=== PATIENT | male | born 1990 | race Caucasian/White ===

== ENCOUNTER 2017-01-15 21:54 | Inpatient (IN) ==
--- NOTE | 2017-01-15 22:20 | Emergency Department Note ---
START Narrative - START START: I examined this patient and my medical decision-making was reviewed with the Resident Physician. I agree with the documented findings, disposition and treatment plan as described except to the extent set forth below. 27-year-old male who is depressed after putting his dog to sleep. Presents today with concern for suicidal ideation. Possible plan for lacerating his throat. He did attempt a lacerated his to her yesterday. Plan to obtain basic medical screening labs and have fever although evaluated the patient for final disposition
[2017-01-15] MEDS ORDERED: Tdap (Boostrix) Vaccine 0.5 ML SYRINGE IM ONE (22:24)
--- NOTE | 2017-01-15 22:24 | Emergency Department Note ---
Disposition Clinical Impression: Suicidal ideations, Suicide attempt Disposition: Still a Patient Referrals: NONE,PCP [Non-Partnered Physician] - Time of Disposition: 23:29 General Adult HPI - General Stated complaint: SI Time Seen by Provider: 01/15/17 22:19 Nursing Notes Reviewed: Yes Vital Signs Reviewed: Yes - History of Present Illness HPI Narrative: Patient had a suicide attempt by cutting his throat yesterday. Suicidal ideation today. Denies any homicidal ideation. Does not have a plan for suicide today. States he got depressed after he had to put down his dog. Denies any hallucinations. - Related Data Previous Rx's Medication Instructions Recorded Hydrocodone/Acetaminophen [[place] 1 - 2 tab PO Q6H PRN #14 tab 07/03/15 5-325 Tablet] Ibuprofen [Motrin] 600 mg PO Q6HR PRN #20 tab 07/03/15 Amoxicillin 875 mg PO BID #20 tablet 02/19/16 DiphenhydraMINE [Benadryl] 25 mg PO Q8HR PRN #20 capsule 02/19/16 Guaifenesin/Pseudoephedrne HCl 1 each PO BID #20 tab.er.12h 02/19/16 [Mucinex D ER 1,200-120 mg Tab] Ondansetron ODT [Zofran ODT] 4 mg SL Q6HR #8 tab.rapdis 05/05/16 Amoxicillin/Clavulanate [Augmentin] 875 mg PO BID #20 tablet 12/03/16 Ketoconazole 2% CRM [Nizoral Cream] 1 appl TP DAILY #1 tube 12/03/16 PredniSONE [Katia] 5 mg PO DAILY 6 Days 12/03/16 Allergies Allergy/AdvReac Type Severity Reaction Status Date / Time No Known Allergies Allergy Verified 01/15/17 22:26 All systems ED: reviewed and negative except as stated. Constitutional: Denies: fever Cardiovascular: Denies: chest pain, palpitations, syncope Respiratory: Denies: cough, dyspnea, wheezes Gastrointestinal: Denies: abdominal pain, nausea, vomiting, diarrhea Genitourinary: Denies: urgency, dysuria, frequency, hematuria Musculoskeletal: Denies: back pain, neck pain Integumentary: Reports: abrasion (To right neck). Denies: rash Neurological: Denies: headache, weakness, numbness Past Medical History - Past Medical History Medical history: Reports: no medical history Psychiatric history: Reports: no psych history - Social History Smoking Status: Current every day smoker Smokeless Tobacco Status: No Alcohol use: Reports: none Drug use: Reports: marijuana Physical Exam - General Limitations: no limitations General appearance: alert, in no apparent distress - Head Head exam: atraumatic, normocephalic, normal inspection - Eye Eye exam: Present: normal appearance, PERRL, EOMI. Absent: scleral icterus - ENT ENT exam: normal exam, normal oropharynx, mucous membranes moist - Neck Neck exam: Present: normal inspection, full ROM, trachea midline - Chest Chest inspection: Present: normal inspection, symmetric chest wall rise. Absent : tenderness - Respiratory Respiratory exam: Present: normal lung sounds bilaterally, respiratory distress - Cardiovascular Cardiovascular exam: Present: regular rate, normal rhythm, normal heart sounds - Abdominal Exam Abdominal exam: Present: soft, Non-Tender. Absent: tenderness, distention, guarding, rebound, rigidity - Extremities Exam Extremities exam: Present: normal inspection, full ROM, normal capillary refill. Absent: tenderness, pedal edema - Neurological Exam Neurological exam: Present: alert, oriented X3 - Psychiatric Psychiatric exam: Present: normal affect, normal mood, suicidal ideation. Absent: homicidal ideation - Skin Skin exam: Present: warm, dry, intact, normal color Course Course Narrative: Patient presenting complaints for me complaining of suicidal ideation. He attempted to suicide yesterday by cutting his throat with a razor blade however the reasonably was to goal he stated. He still has SI with no plan at this time. Denies any HI. Denies any visual or audio hallucinations. Denies any other medical plaints at this time. Does report cocaine use with the last few several days ago. He states he snorted at this time. States that he is depressed currently because he had put his dog on yesterday. We will get screening labs and have one a speech to the patient. He is currently pink slipped at this time for suicidal ideation. Patient was signed out to Dr. Simental.
[2017-01-15 22:39] LABS: Basophils # 0.1 K/mcL (0.0-0.2); Eosinophils # 0.1 K/mcL (0.0-0.6); Eosinophils % 1.7 %; Hematocrit 43.3 % (37.5-50.1); Hemoglobin 14.8 g/dL (12.9-16.9); Immature Granulocytes % 0.1 % (0-4); Immature Platelets 6.5 % (1.1-6.1); Lymphocytes % 43.1 %; Mean Corpuscular HGB Conc 34.2 g/dL (31.6-35.5); Mean Corpuscular Hemoglobin 29.3 pg (28.0-33.3); Mean Corpuscular Volume 85.7 fL (83.0-100.0); Mean Platelet Volume 10.9 fL (9.4-12.4); Monocytes # 0.6 K/mcL (0.0-1.3); Neutrophils # 3.2 K/mcL (1.6-8.9); Platelet Count 175 K/mcL (140-400); Red Blood Count 5.05 M/mcL (4.19-5.50); Red Cell Distribution Width 12.7 % (11.5-14.5); Segmented Neutrophils % 46.1 %
[2017-01-15 22:53] LABS: Bilirubin,Urine Small (Negative); Blood,Urine Negative (Negative); Clarity,Urine Clear (Clear); Color,Urine Dark Yellow (Yellow); Glucose,Urine (UA) Normal (Normal); Ketones,Urine 15 mg/dL (Negative); Leukocyte Esterase,Urine Negative (Negative); Nitrite,Urine Negative (Negative); Protein,Urine Trace mg/dL (Neg-Trace); Specific Gravity,Urine > 1.030 (1.010-1.025); Urobilinogen,Urine Normal (Normal)
[2017-01-15 22:53] LABS: BUN/Creatinine Ratio 11 (6-26); Blood Urea Nitrogen 10 mg/dL (8-26); Calcium 9.7 mg/dL (8.6-10.8); Carbon Dioxide 25 mEq/L (19-29); Chloride 106 mEq/L (98-109); Glucose 122 mg/dL (70-99); Osmolality,Calculated 290 (280-300); Potassium 3.8 mEq/L (3.5-4.5); Sodium 140 mEq/L (136-145); eGFR For African Americans > 60 (> 60); eGFR For Non-African Americans > 60 (> 60)
[2017-01-15 22:55] LABS: Acetaminophen < 1.0 mcg/mL (10-30); Ethanol < 10 mg/dL (0-10); Salicylate < 5.0 mg/dL (15-30)
[2017-01-15 22:56] LABS: Bacteria,Urine None Seen per hpf (None-Few); Hyaline Casts,Urine None Seen per lpf (None-Few); RBC,Urine 0-3 per hpf (0-3); Squamous Epithelial Cell,Urine Few per lpf (None-Few); WBC,Urine 0-3 per hpf (0-3)
[2017-01-15 22:59] LABS: Amphetamine Screen,Urine Negative ng/mL (Cutoff=1000); Barbiturate Screen,Urine Negative ng/mL (Cutoff=200); Benzodiazepines Screen,Urine Negative ng/mL (Cutoff=200); Cannabinoid Screen,Urine Positive ng/mL (Cutoff = 50); Cocaine Screen,Urine Positive ng/mL (Cutoff= 300); Opiate Screen,Urine Negative ng/mL (Cutoff=300); Phencyclidine Screen,Urine Negative ng/mL (Cutoff=25)
[2017-01-15] MEDS: Nicotine 21 MG PATCH.TD24 TD SCH (23:34)
--- NOTE | 2017-01-16 00:17 | Emergency Department Note ---
Disposition Clinical Impression: Suicidal ideations, Suicide attempt Disposition: Admitted As Inpatient Condition: Good Referrals: NONE,PCP [Non-Partnered Physician] - General Adult HPI - General Chief complaint: ED Psychiatric Symptoms Stated complaint: SI Time Seen by Provider: 01/15/17 22:19 Source: patient Limitations: no limitations - History of Present Illness Pain Scale: 0 - Related Data Previous Rx's Medication Instructions Recorded Hydrocodone/Acetaminophen [[place] 1 - 2 tab PO Q6H PRN #14 tab 07/03/15 5-325 Tablet] Ibuprofen [Motrin] 600 mg PO Q6HR PRN #20 tab 07/03/15 Amoxicillin 875 mg PO BID #20 tablet 02/19/16 DiphenhydraMINE [Benadryl] 25 mg PO Q8HR PRN #20 capsule 02/19/16 Guaifenesin/Pseudoephedrne HCl 1 each PO BID #20 tab.er.12h 02/19/16 [Mucinex D ER 1,200-120 mg Tab] Ondansetron ODT [Zofran ODT] 4 mg SL Q6HR #8 tab.rapdis 05/05/16 Amoxicillin/Clavulanate [Augmentin] 875 mg PO BID #20 tablet 12/03/16 Ketoconazole 2% CRM [Nizoral Cream] 1 appl TP DAILY #1 tube 12/03/16 PredniSONE [Katia] 5 mg PO DAILY 6 Days 12/03/16 Allergies Allergy/AdvReac Type Severity Reaction Status Date / Time No Known Allergies Allergy Verified 01/15/17 22:26 Constitutional: Denies: fever Cardiovascular: Denies: chest pain, palpitations, syncope Respiratory: Denies: cough, dyspnea, wheezes Gastrointestinal: Denies: abdominal pain, nausea, vomiting, diarrhea Genitourinary: Denies: urgency, dysuria, frequency, hematuria Musculoskeletal: Denies: back pain, neck pain Integumentary: Reports: abrasion (To right neck). Denies: rash Neurological: Denies: headache, weakness, numbness Past Medical History - Past Medical History Medical history: Reports: no medical history Psychiatric history: Reports: no psych history - Social History Smoking Status: Current every day smoker Smokeless Tobacco Status: No Alcohol use: Reports: none Drug use: Reports: marijuana Physical Exam - General Limitations: no limitations General appearance: alert, in no apparent distress Course Course Narrative: This patient was signed out at shift change from Dr. Mann and Dr. Akers. Please refer to their notes for complete details of history and physical examination. Patient presented with suicidal ideations and is awaiting evaluation by the psychiatry service. Patient was evaluated by the psychiatry service and is being admitted to the [facility] psychiatry unit. Vital Signs Temperature 97.9 F 01/15/17 22:26 Pulse Rate 64 01/15/17 22:26 Respiratory Rate 16 01/15/17 22:26 Blood Pressure 131/82 01/15/17 22:26 O2 Sat by Pulse Oximetry 97 01/15/17 22:26 Temperature 97.9 F 01/15/17 22:26 Pulse Rate 64 01/15/17 22:26 Respiratory Rate 16 01/15/17 22:26 Blood Pressure 131/82 01/15/17 22:26 O2 Sat by Pulse Oximetry 97 01/15/17 22:26 Oxygen Delivery Oxygen Delivery Room Air Medical Decision Making - Lab Data Result diagrams: 01/15/17 22:33 01/15/17 22:33 Lab Results 01/15/17 01/15/17 01/15/17 Range/Units 22:33 22:33 22:45 WBC 6.9 (4.3-11.1) K/mcL RBC 5.05 (4.19-5.50) M/mcL Hgb 14.8 (12.9-16.9) g/dL Hct 43.3 (37.5-50.1) % MCV 85.7 (83.0-100.0) fL MCH 29.3 (28.0-33.3) pg MCHC 34.2 (31.6-35.5) g/dL RDW 12.7 (11.5-14.5) % Plt Count 175 (140-400) K/mcL MPV 10.9 (9.4-12.4) fL Immature Gran % 0.1 (0-4) % Seg Neutrophils % 46.1 % Lymphocytes % 43.1 % Monocytes % 8.0 % Eosinophils % 1.7 % Basophils % 1.0 % Neutrophils # 3.2 (1.6-8.9) K/mcL Lymphocytes # 3.0 (0.6-4.6) K/mcL Monocytes # 0.6 (0.0-1.3) K/mcL Eosinophils # 0.1 (0.0-0.6) K/mcL Basophils # 0.1 (0.0-0.2) K/mcL Immature Plt Fraction 6.5 H (1.1-6.1) % Sodium 140 (136-145) mEq/L Potassium 3.8 (3.5-4.5) mEq/L Chloride 106 (98-109) mEq/L Carbon Dioxide 25 (19-29) mEq/L BUN 10 (8-26) mg/dL Creatinine 0.94 (0.72-1.25) mg/dL Est GFR ( Amer) > 60 (> 60) Est GFR (Non-Af Amer) > 60 (> 60) BUN/Creatinine Ratio 11 (6-26) Glucose 122 H (70-99) mg/dL Calculated Osmolality 290 (280-300) Calcium 9.7 (8.6-10.8) mg/dL TSH 1.170 (0.350-4.840) mcIU/mL Urine Color Dark Yellow (Yellow) Urine Clarity Clear (Clear) Urine pH 6.0 (5.0-8.0) pH Units Ur Specific [place] > 1.030 H (1.010-1.025) Urine Protein Trace (Neg-Trace) mg/dL Urine Glucose (UA) Normal (Normal) mg/dL Urine Ketones 15 H (Negative) mg/dL Urine Blood Negative (Negative) Urine Nitrite Negative (Negative) Urine Bilirubin Small H (Negative) Urine Urobilinogen Normal (Normal) mg/dL Ur Leukocyte Esterase Negative (Negative) Urine Microscopic RBC 0-3 (0-3) per hpf Urine Microscopic WBC 0-3 (0-3) per hpf Ur Squamous Epith Cells Few (None-Few) per lpf Urine Bacteria None Seen (None-Few) per hpf Hyaline Casts None Seen (None-Few) per lpf Salicylates < 5.0 L (15-30) mg/dL Urine Opiates Screen (Miitjr=384) ng/mL Acetaminophen < 1.0 L (10-30) mcg/mL Ur Barbiturates Screen (Kqtxom=126) ng/mL Ur Phencyclidine Scrn (Cutoff=25) ng/mL Ur Amphetamines Screen (Loaaow=5034) ng/mL U Benzodiazepines Scrn (Ztfoqs=558) ng/mL Urine Cocaine Screen (Cutoff= 300) ng/mL U Marijuana (THC) Screen (Cutoff = 50) ng/mL Ethyl Alcohol < 10 (0-10) mg/dL 01/15/17 Range/Units 22:45 WBC (4.3-11.1) K/mcL RBC (4.19-5.50) M/mcL Hgb (12.9-16.9) g/dL Hct (37.5-50.1) % MCV (83.0-100.0) fL MCH (28.0-33.3) pg MCHC (31.6-35.5) g/dL RDW (11.5-14.5) % Plt Count (140-400) K/mcL MPV (9.4-12.4) fL Immature Gran % (0-4) % Seg Neutrophils % % Lymphocytes % % Monocytes % % Eosinophils % % Basophils % % Neutrophils # (1.6-8.9) K/mcL Lymphocytes # (0.6-4.6) K/mcL Monocytes # (0.0-1.3) K/mcL Eosinophils # (0.0-0.6) K/mcL Basophils # (0.0-0.2) K/mcL Immature Plt Fraction (1.1-6.1) % Sodium (136-145) mEq/L Potassium (3.5-4.5) mEq/L Chloride (98-109) mEq/L Carbon Dioxide (19-29) mEq/L BUN (8-26) mg/dL Creatinine (0.72-1.25) mg/dL Est GFR ( Amer) (> 60) Est GFR (Non-Af Amer) (> 60) BUN/Creatinine Ratio (6-26) Glucose (70-99) mg/dL Calculated Osmolality (280-300) Calcium (8.6-10.8) mg/dL TSH (0.350-4.840) mcIU/mL Urine Color (Yellow) Urine Clarity (Clear) Urine pH (5.0-8.0) pH Units Ur Specific [place] (1.010-1.025) Urine Protein (Neg-Trace) mg/dL Urine Glucose (UA) (Normal) mg/dL Urine Ketones (Negative) mg/dL Urine Blood (Negative) Urine Nitrite (Negative) Urine Bilirubin (Negative) Urine Urobilinogen (Normal) mg/dL Ur Leukocyte Esterase (Negative) Urine Microscopic RBC (0-3) per hpf Urine Microscopic WBC (0-3) per hpf Ur Squamous Epith Cells (None-Few) per lpf Urine Bacteria (None-Few) per hpf Hyaline Casts (None-Few) per lpf Salicylates (15-30) mg/dL Urine Opiates Screen Negative (Rvfzjn=805) ng/mL Acetaminophen (10-30) mcg/mL Ur Barbiturates Screen Negative (Nsvubl=309) ng/mL Ur Phencyclidine Scrn Negative (Cutoff=25) ng/mL Ur Amphetamines Screen Negative (Cclnce=2917) ng/mL U Benzodiazepines Scrn Negative (Docyxq=057) ng/mL Urine Cocaine Screen Positive H (Cutoff= 300) ng/mL U Marijuana (THC) Screen Positive H (Cutoff = 50) ng/mL Ethyl Alcohol (0-10) mg/dL
[2017-01-16] MEDS ORDERED: Mag Hydrox/Al Hydrox/Simeth 30 ML UDC PO PRN (00:59)
[2017-01-16] MEDS ORDERED: MOM Conc 10 ML UD.LIQ PO PRN (00:59)
[2017-01-16] MEDS ORDERED: *HR* LORazepam 1 MG TABLET PO PRN (00:59)
[2017-01-16] MEDS ORDERED: Acetaminophen 325 MG TABLET PO PRN (00:59)
[2017-01-16] MEDS ORDERED: *HR* LORazepam 2 MG/ML VIAL IM PRN (00:59)
[2017-01-16] MEDS ORDERED: Haloperidol Lactate 5 MG/ML VIAL IM PRN (00:59)
[2017-01-16] MEDS: traZODone 50 MG TABLET PO PRN ×2 (01:31→21:05)
[2017-01-16] MEDS: Nicotine 21 MG PATCH.TD24 TD SCH (09:15)
--- NOTE | 2017-01-16 16:08 | Psychiatry History & Physical ---
Date of Encounter: 01/16/17 Time of Encounter: 15:40 History of Present Illness Patient Stated Chief Complaint: i wanted to slit my throat. Medicare Admission Attestation: For traditional Medicare patients the provided hospital inpatient services are reasonable and necessary and in the case of services not specified as inpatient -only under 42 CFR 419.22 (n), that they are appropriately provided as inpatient services in accordance 42 CFR 412.3. For Critical Access Hospital the patient may reasonably be expected to be discharged or transferred to a hospital within 96 hours after admission to the Critical Access Hospital. Admitted From: Emergency Dept Plans for Post Hospital Care: Home History of Present Illness: Mr. Hogan is a 27 year old male lives with his Girl Friend and her 7 month old baby. He has history of poly substance abuse and was in patient in 2010 for poly substance use and suicidal ideation. he has h/o self mutilating behaviours. This time he tried to cut his throat with razor blade has superficial cut and it happened after argument with GF. States i am tired of hurting others , i have failed everyone even my dog,and i didnot believed in depression and anxiety till now as i broke down and could not handle it. he has multiple recent stressor. he had to put his dog down himself, found out 7 month old is not his, financial . he has been using cocain, marijuana and alcohol. denies any iv use. he admits feeling sad, unhappy, guilty/hopelessness , no psychosis and no manic episode , admits has racing thoughts , sleep not good , irritability and impulsive. denies suicidal ideation or homocidal ideation. Past Med Surg Social Fam HX - Past Medical History Medical history: no medical history - Past Psychiatric History Psychiatric history: Reports: anxiety, previous psychiatric hospitalization Family psychiatric history: No Family History of Suicide: None (has substance use in family , not immediate but his cousins.) - Social History Smoking Status: Current every day smoker Smokeless Tobacco Status: No Alcohol use: none Drug use: cocaine, marijuana - Family History Mother History Unknown: Yes Adopted: No Family Member Ethnicity: Non- Living Status: Still Living Medications & Allergies No Known Home Drugs 01/16/17 [History] Allergies No Known Allergies Allergy (Verified 01/15/17 22:26) Review of Systems Constitutional: Denies: fever, chills, weakness, weight change Eyes: Denies: eye pain, vision change Ears, Nose, Throat: Denies: ear pain, throat pain, dental pain, hearing loss, congestion Cardiovascular: Denies: chest pain, palpitations, dyspnea on exertion Respiratory: Denies: cough, dyspnea, wheezes Gastrointestinal: Denies: abdominal pain, nausea, vomiting, diarrhea, constipation Genitourinary male: Denies: urgency, dysuria, frequency, genital lesions Genitourinary female: Denies: urgency, dysuria, frequency, abnormal menses, dyspareunia Musculoskeletal: Denies: joint swelling, joint pain Integumentary: Denies: rash, lesions, pruritus Neurological: Denies: headache, weakness, numbness, memory loss Psychiatric: Reports: depression, anxiety, abnormal sleep pattern, suicidal ideation, anhedonia, hopelessness, irritability, mood swings, panic attacks Endocrine: Denies: fatigue, heat or cold intolerance Hematologic/Lymphatic: Denies: easy bruising, lymphadenopathy Allergic/Immunologic: Denies: urticaria, itchy eyes Mental Status Exam Patient orientation: Yes Person, Yes Time, Yes Place Level of alertness: Alert Patient appearance: Appropriate Behavior: cooperative, anxious, withdrawn Psychomotor activity: Slowed Eye contact: Maintains Eye Contact Mood description: Depressed, Anxious Affect description: dysphoric Speech pattern: Slowed Speech volume: Soft/Quiet Thought process: Intact Thought content: Yes Guilt Attention span: Unable to Focus Memory description: Grossly Intact Patient reliability: Reliable Historian Intelligence estimate: Average Judgment: Limited Insight: Partial Exam - HEENT Head exam IM: Present: atraumatic, normal inspection Eye exam IM: Present: normal appearance ENT exam IM: Present: normal exam - Neurological Neurological exam IM: Present: alert, CN II-XII intact, normal gait, oriented X3 - Skin Skin exam IM: Present: abrasion, dry (has tattos arms and chest and legs , back. ), warm Results - Vital Signs Vital signs: Temp Pulse Resp BP Pulse Ox 97.8 F 54 16 126/78 97 01/16/17 09:00 01/16/17 09:00 01/16/17 09:00 01/16/17 09:00 01/15/17 22:26 - Labs Labs: Laboratory Last Values WBC 6.9 K/mcL (4.3-11.1) 01/15/17 22:33 RBC 5.05 M/mcL (4.19-5.50) 01/15/17 22:33 Hgb 14.8 g/dL (12.9-16.9) 01/15/17 22:33 Hct 43.3 % (37.5-50.1) 01/15/17 22:33 MCV 85.7 fL (83.0-100.0) 01/15/17 22:33 MCH 29.3 pg (28.0-33.3) 01/15/17 22:33 MCHC 34.2 g/dL (31.6-35.5) 01/15/17 22:33 RDW 12.7 % (11.5-14.5) 01/15/17 22:33 Plt Count 175 K/mcL (140-400) 01/15/17 22:33 MPV 10.9 fL (9.4-12.4) 01/15/17 22:33 Immature Gran % 0.1 % (0-4) 01/15/17 22:33 Seg Neutrophils % 46.1 % 01/15/17 22:33 Lymphocytes % 43.1 % 01/15/17 22:33 Monocytes % 8.0 % 01/15/17 22:33 Eosinophils % 1.7 % 01/15/17 22:33 Basophils % 1.0 % 01/15/17 22:33 Neutrophils # 3.2 K/mcL (1.6-8.9) 01/15/17 22:33 Lymphocytes # 3.0 K/mcL (0.6-4.6) 01/15/17 22: Monocytes # 0.6 K/mcL (0.0-1.3) 01/15/17 22:33 Eosinophils # 0.1 K/mcL (0.0-0.6) 01/15/17 22:33 Basophils # 0.1 K/mcL (0.0-0.2) 01/15/17 22:33 Immature Plt Fraction 6.5 % (1.1-6.1) H 01/15/17 22:33 Sodium 140 mEq/L (136-145) 01/15/17 22:33 Potassium 3.8 mEq/L (3.5-4.5) 01/15/17 22:33 Chloride 106 mEq/L (98-109) 01/15/17 22:33 Carbon Dioxide 25 mEq/L (19-29) 01/15/17 22:33 BUN 10 mg/dL (8-26) 01/15/17 22:33 Creatinine 0.94 mg/dL (0.72-1.25) 01/15/17 22:33 Est GFR ( Amer) > 60 (> 60) 01/15/17 22:33 Est GFR (Non-Af Amer) > 60 (> 60) 01/15/17 22:33 BUN/Creatinine Ratio 11 (6-26) 01/15/17 22:33 Glucose 122 mg/dL (70-99) H 01/15/17 22:33 Calculated Osmolality 290 (280-300) 01/15/17 22:33 Calcium 9.7 mg/dL (8.6-10.8) 01/15/17 22:33 TSH 1.170 mcIU/mL (0.350-4.840) 01/15/17 22:33 Urine Color Dark Yellow (Yellow) 01/15/17 22:45 Urine Clarity Clear (Clear) 01/15/17 22:45 Urine pH 6.0 pH Units (5.0-8.0) 01/15/17 22:45 Ur Specific [place] > 1.030 (1.010-1.025) H 01/15/17 22:45 Urine Protein Trace mg/dL (Neg-Trace) 01/15/17 22:45 Urine Glucose (UA) Normal mg/dL (Normal) 01/15/17 22:45 Urine Ketones 15 mg/dL (Negative) H 01/15/17 22:45 Urine Blood Negative (Negative) 01/15/17 22:45 Urine Nitrite Negative (Negative) 01/15/17 22:45 Urine Bilirubin Small (Negative) H 01/15/17 22:45 Urine Urobilinogen Normal mg/dL (Normal) 01/15/17 22:45 Ur Leukocyte Esterase Negative (Negative) 01/15/17 22:45 Urine Microscopic RBC 0-3 per hpf (0-3) 01/15/17 22:45 Urine Microscopic WBC 0-3 per hpf (0-3) 01/15/17 22:45 Ur Squamous Epith Cells Few per lpf (None-Few) 01/15/17 22:45 Urine Bacteria None Seen per hpf (None-Few) 01/15/17 22:45 Hyaline Casts None Seen per lpf (None-Few) 01/15/17 22:45 Salicylates < 5.0 mg/dL (15-30) L 01/15/17 22:33 Urine Opiates Screen Negative ng/mL (Ulugfg=025) 01/15/17 22:45 Acetaminophen < 1.0 mcg/mL (10-30) L 01/15/17 22:33 Ur Barbiturates Screen Negative ng/mL (Sxrwdu=672) 01/15/17 22:45 Ur Phencyclidine Scrn Negative ng/mL (Cutoff=25) 01/15/17 22:45 Ur Amphetamines Screen Negative ng/mL (Jxbssy=7105) 01/15/17 22:45 U Benzodiazepines Scrn Negative ng/mL (Tqulgg=988) 01/15/17 22:45 Urine Cocaine Screen Positive ng/mL (Cutoff= 300) H 01/15/17 22:45 U Marijuana (THC) Screen Positive ng/mL (Cutoff = 50) H 01/15/17 22:45 Ethyl Alcohol < 10 mg/dL (0-10) 01/15/17 22:33 Assessment and Plan (1) Polysubstance (excluding opioids) dependence Current visit: Yes Status: Chronic Plan: Admit inpatient for safety and stabilization, Close observation, Suicide Precautions per unit protocol, Encourage participation in unit milieu, Group Therapy, Monitor sleep, Monitor appetite, Family/Supportive other meeting Risks, benefits, side effects, alternatives discussed w/pt: Yes Patient agreeable to treatment: Yes Plans for Post Hospital Care: Transfer Inp Rehab Fac (2) Depressive episode Current visit: Yes Status: Acute Plan: Admit inpatient for safety and stabilization, Close observation, Suicide Precautions per unit protocol, Encourage participation in unit milieu, Group Therapy, Monitor sleep, Monitor appetite, Family/Supportive other meeting Risks, benefits, side effects, alternatives discussed w/pt: Yes Patient agreeable to treatment: Yes Plans for Post Hospital Care: Home
[2017-01-16] MEDS: Nicotine 2 MG GUM BC PRN (18:06)
[2017-01-16] MEDS: Divalproex (12 HR) 250 MG TABLET PO SCH (21:04)
[2017-01-17] MEDS: Divalproex (12 HR) 250 MG TABLET PO SCH ×2 (09:58→20:39)
--- NOTE | 2017-01-17 11:28 | Psychiatry Progress Note ---
Date of Encounter: 01/17/17 Time of Encounter: 11:10 Subjective Interval history: Patient seen today , states i was good but not feeling good today , he is also upset about his significant other being upset with him. he is still hopeless and guilty, he is withdrawn and anxious today he is still having cravings and feels meds helping some, sleep good with medication , he has to take prn meds. pt still is significantly depressed and hopeless, no suicidal thoughts . Review of Systems Psychiatric: Reports: depression, anxiety, abnormal sleep pattern, anhedonia, hopelessness, irritability, mood swings, panic attacks Objective: Exam Patient orientation: Yes Person, Yes Time, Yes Place Level of alertness: Alert Patient appearance: Appropriate Behavior: cooperative, withdrawn Psychomotor activity: Slowed Eye contact: Maintains Eye Contact Mood description: Depressed, Anxious Affect description: congruent with mood, dysphoric Speech pattern: Slowed Speech volume: Soft/Quiet Thought process: Perseveration, Slowed Thinking Judgment: Limited Insight: Partial Results - Vital Signs Vital Signs: Temp Pulse Resp BP Pulse Ox 98.2 F 64 16 138/85 97 01/16/17 20:28 01/16/17 20:28 01/16/17 20:28 01/16/17 20:28 01/15/17 22:26 Assessment and Plan (1) Major depressive disorder, severe Current visit: Yes Status: Acute Plan: Continue hospitalization, Close observation, Suicide Precautions per unit protocol, Encourage participation in unit milieu, Group Therapy, Monitor sleep, Monitor appetite, Family/Supportive other meeting Risks, benefits, side effects, alternatives discussed w/pt: Yes Patient agreeable to treatment: Yes (2) Depressive episode Current visit: Yes Status: Resolved Plan: Continue hospitalization, Close observation, Suicide Precautions per unit protocol, Encourage participation in unit milieu, Group Therapy, Monitor sleep, Monitor appetite, Family/Supportive other meeting Risks, benefits, side effects, alternatives discussed w/pt: Yes Patient agreeable to treatment: Yes (3) Polysubstance (excluding opioids) dependence Current visit: Yes Status: Chronic Plan: Continue hospitalization, Close observation, Suicide Precautions per unit protocol, Encourage participation in unit milieu, Group Therapy, Monitor sleep, Monitor appetite, Family/Supportive other meeting Risks, benefits, side effects, alternatives discussed w/pt: Yes Patient agreeable to treatment: Yes Consult Discharge Plan - Plan Referrals: [facility] [Outside] - 01/24/17 2:00 pm (The above appointment is with Carlita Mendez, counselor at [facility]. Your first appointment will be very thorough and the total appointment time will take between two and three hours. You will be completing paperwork, meeting with a counselor and a nurse, and developing a treatment plan. You will receive follow- up appointments for on-going services , which could include community support, mental health and substance abuse counseling, groups/partial hospitalization programming, medication assisted treatment, and psychiatric medication management. Please bring the following with you to your first visit to the clinic: 1) proof of household income (two consecutive pay stubs, social security award letter, bank statement, statement letter from [facility], child support statement, IRS 1040 or W2 form, or a statement from the person who financially supports you stating they help provide for your basic needs), 2) proof of residency (drivers license, a piece of mail showing your address, a statement from person you live with verifying you live at their address), 3) your social security card, 4) photo ID, and 5) your insurance card (if you have commercial insurance you must call to obtain a prior authorization number before you arrive to your first appointment). If you do not bring these items, you will not be seen.) [facility] [Outside] - 01/30/17 1:00 pm (The above appointment is with Carla Fox, for outpatient psychiatric assessment and medication management services. Please arrive 30 minutes early to complete paperwork. Please bring your photo ID and medication list. This is the first available appointment. You may contact the office regularly to check for cancellations that may allow you to be seen sooner. )
[2017-01-17] MEDS: Nicotine 2 MG GUM BC PRN ×3 (12:29→21:32)
[2017-01-17] MEDS: hydrOXYzine pamoate 25 MG CAPSULE PO PRN ×2 (13:28→18:41)
[2017-01-17] MEDS: traZODone 50 MG TABLET PO PRN (22:07)
[2017-01-18] MEDS: Divalproex (12 HR) 250 MG TABLET PO SCH (09:31)
[2017-01-18] MEDS: Nicotine 2 MG GUM BC PRN ×4 (09:58→20:47)
--- NOTE | 2017-01-18 10:34 | Psychiatry Progress Note ---
Date of Encounter: 01/18/17 Time of Encounter: 10:20 Subjective Interval history: Patient seen today , case discussed with treatment team. as per him states i am sleeping better, i am still irritable and carson , racing thoughts, and i get angry easily like yesterday Damián took time to give me something i asked and it made me angry , i also asked for vistaril several times yesterday. will increase depakote to 500 mg bid. denies suicidal ideation or thoughts of hurting others. i am not depressed as much. Review of Systems Psychiatric: Reports: anxiety, anhedonia, irritability, mood swings, panic attacks Objective: Exam Patient orientation: Yes Person, Yes Time, Yes Place Level of alertness: Alert Patient appearance: Average Behavior: cooperative, talkative Psychomotor activity: Normal Eye contact: Maintains Eye Contact Mood description: Anxious Affect description: congruent with mood Speech pattern: Normal rate Speech volume: Normal Thought process: Circumstantial Thought content: Yes Intact Judgment: Fair Insight: Partial Results - Vital Signs Vital Signs: Temp Pulse Resp BP Pulse Ox 98.3 F 71 18 132/91 97 01/17/17 21:00 01/17/17 21:00 01/17/17 21:00 01/17/17 21:00 01/15/17 22:26 Assessment and Plan (1) Major depressive disorder, severe Current visit: Yes Status: Acute Risks, benefits, side effects, alternatives discussed w/pt: Yes Patient agreeable to treatment: Yes (2) Depressive episode Current visit: Yes Status: Resolved Risks, benefits, side effects, alternatives discussed w/pt: Yes Patient agreeable to treatment: Yes (3) Polysubstance (excluding opioids) dependence Current visit: Yes Status: Chronic Risks, benefits, side effects, alternatives discussed w/pt: Yes Patient agreeable to treatment: Yes Consult Discharge Plan - Plan Referrals: [facility] [Outside] - 01/24/17 2:00 pm (The above appointment is with Carlita Mendez, counselor at [facility]. Your first appointment will be very thorough and the total appointment time will take between two and three hours. You will be completing paperwork, meeting with a counselor and a nurse, and developing a treatment plan. You will receive follow- up appointments for on-going services , which could include community support, mental health and substance abuse counseling, groups/partial hospitalization programming, medication assisted treatment, and psychiatric medication management. Please bring the following with you to your first visit to the clinic: 1) proof of household income (two consecutive pay stubs, social security award letter, bank statement, statement letter from [facility], child support statement, IRS 1040 or W2 form, or a statement from the person who financially supports you stating they help provide for your basic needs), 2) proof of residency (drivers license, a piece of mail showing your address, a statement from person you live with verifying you live at their address), 3) your social security card, 4) photo ID, and 5) your insurance card (if you have commercial insurance you must call to obtain a prior authorization number before you arrive to your first appointment). If you do not bring these items, you will not be seen.) [facility] [Outside] - 01/30/17 1:00 pm (The above appointment is with Carla Fox, for outpatient psychiatric assessment and medication management services. Please arrive 30 minutes early to complete paperwork. Please bring your photo ID and medication list. This is the first available appointment. You may contact the office regularly to check for cancellations that may allow you to be seen sooner. )
[2017-01-18] MEDS: hydrOXYzine pamoate 25 MG CAPSULE PO PRN ×2 (13:38→20:02)
[2017-01-18] MEDS: Divalproex (12 HR) 500 MG TABLET PO SCH (20:02)
[2017-01-18] MEDS: traZODone 50 MG TABLET PO PRN (20:02)
[2017-01-19] MEDS: Divalproex (12 HR) 500 MG TABLET PO SCH ×2 (08:55→20:51)
[2017-01-19] MEDS: Nicotine 2 MG GUM BC PRN ×4 (09:39→20:51)
--- NOTE | 2017-01-19 10:55 | Psychiatry Progress Note ---
Date of Encounter: 01/19/17 Time of Encounter: 10:45 Subjective Interval history: Patient seen today , case d/w tratment team , as per staff patient compliant with meds , as per patient he is doing fine, he said slept ok, he is denying any psychosis, no suicidal thughts. depakote was increased for anger and irritability , he states i do feel good and no anger since yesterday , and nothing like before. tiny things do not bother me any more denies side effects. he denies craving and looking forward to out patient treatment. Review of Systems Psychiatric: Reports: anxiety, anhedonia, mood swings, panic attacks Objective: Exam Patient orientation: Yes Person, Yes Time, Yes Place Level of alertness: Alert Patient appearance: Appropriate Behavior: calm, cooperative Psychomotor activity: Normal Eye contact: Maintains Eye Contact Mood description: Anxious Affect description: congruent with mood Speech pattern: Normal rate Speech volume: Normal Thought process: Intact, Circumstantial Thought content: Yes Intact Judgment: Fair Insight: Partial Results - Vital Signs Vital Signs: Temp Pulse Resp BP Pulse Ox 97.7 F 50 18 115/80 97 01/19/17 09:00 01/19/17 09:00 01/19/17 09:00 01/19/17 09:00 01/15/17 22:26 Assessment and Plan (1) Major depressive disorder, severe Current visit: Yes Status: Acute Risks, benefits, side effects, alternatives discussed w/pt: Yes Patient agreeable to treatment: Yes (2) Depressive episode Current visit: Yes Status: Resolved Risks, benefits, side effects, alternatives discussed w/pt: Yes Patient agreeable to treatment: Yes (3) Polysubstance (excluding opioids) dependence Current visit: Yes Status: Chronic Risks, benefits, side effects, alternatives discussed w/pt: Yes Patient agreeable to treatment: Yes Consult Discharge Plan - Plan Referrals: [facility] [Outside] - 01/24/17 2:00 pm (The above appointment is with Carlita Mendez, counselor at [facility]. Your first appointment will be very thorough and the total appointment time will take between two and three hours. You will be completing paperwork, meeting with a counselor and a nurse, and developing a treatment plan. You will receive follow- up appointments for on-going services , which could include community support, mental health and substance abuse counseling, groups/partial hospitalization programming, medication assisted treatment, and psychiatric medication management. Please bring the following with you to your first visit to the clinic: 1) proof of household income (two consecutive pay stubs, social security award letter, bank statement, statement letter from [facility], child support statement, IRS 1040 or W2 form, or a statement from the person who financially supports you stating they help provide for your basic needs), 2) proof of residency (drivers license, a piece of mail showing your address, a statement from person you live with verifying you live at their address), 3) your social security card, 4) photo ID, and 5) your insurance card (if you have commercial insurance you must call to obtain a prior authorization number before you arrive to your first appointment). If you do not bring these items, you will not be seen.) [facility] [Outside] - 01/30/17 1:00 pm (The above appointment is with Carla Fox, for outpatient psychiatric assessment and medication management services. Please arrive 30 minutes early to complete paperwork. Please bring your photo ID and medication list. This is the first available appointment. You may contact the office regularly to check for cancellations that may allow you to be seen sooner. )
[2017-01-19] MEDS: hydrOXYzine pamoate 25 MG CAPSULE PO PRN (20:51)
[2017-01-19] MEDS: traZODone 50 MG TABLET PO PRN (23:08)
[2017-01-20 09:11] VITALS: BP 129/82
[2017-01-20] MEDS: Divalproex (12 HR) 500 MG TABLET PO SCH (09:25)
[2017-01-20] MEDS: Nicotine 2 MG GUM BC PRN (09:27)
--- NOTE | 2017-01-20 10:16 | Discharge Summary ---
Date of Encounter: 01/20/17 Time of Encounter: 09:35 Diagnosis - Discharge Diagnosis (1) Major depressive disorder, severe Status: Acute (2) Depressive episode Status: Resolved (3) Polysubstance (excluding opioids) dependence Status: Chronic Medications - Discharge Medications Prescriptions: Citalopram [CeleXA] 10 mg PO DAILY #14 tab Divalproex (12 HR) [Depakote (12 HR)] 500 mg PO BID #14 traZODone [TraZODone] 50 mg PO HS PRN #14 tab PRN Reason: Insomnia Citalopram [CeleXA] 10 mg PO DAILY #14 tab 01/20/17 [Rx] Divalproex (12 HR) [Depakote (12 HR)] 500 mg PO BID #14 01/20/17 [Rx] traZODone [TraZODone] 50 mg PO HS PRN #14 tab 01/20/17 [Rx] Allergies No Known Allergies Allergy (Verified 01/15/17 22:26) Provider Date of admission: 01/18/17 08:02 Primary care physician: PCP NONE Assessment and Plan - Patient/Caregiver Discharge Instructions Diet: regular diet - Follow up Plan Follow up with: [facility] [Outside] - 01/24/17 2:00 pm (The above appointment is with Carlita Mendez, counselor at [facility]. Your first appointment will be very thorough and the total appointment time will take between two and three hours. You will be completing paperwork, meeting with a counselor and a nurse, and developing a treatment plan. You will receive follow- up appointments for on-going services , which could include community support, mental health and substance abuse counseling, groups/partial hospitalization programming, medication assisted treatment, and psychiatric medication management. Please bring the following with you to your first visit to the clinic: 1) proof of household income (two consecutive pay stubs, social security award letter, bank statement, statement letter from [facility], child support statement, IRS 1040 or W2 form, or a statement from the person who financially supports you stating they help provide for your basic needs), 2) proof of residency (drivers license, a piece of mail showing your address, a statement from person you live with verifying you live at their address), 3) your social security card, 4) photo ID, and 5) your insurance card (if you have commercial insurance you must call to obtain a prior authorization number before you arrive to your first appointment). If you do not bring these items, you will not be seen.) [facility] [Outside] - 01/30/17 1:00 pm (The above appointment is with Carla Daily, for outpatient psychiatric assessment and medication management services. Please arrive 30 minutes early to complete paperwork. Please bring your photo ID and medication list. This is the first available appointment. You may contact the office regularly to check for cancellations that may allow you to be seen sooner. ) Overall status at discharge: Stable Disposition: Home, Self-Care Hospital Course Hospital course: Mr. Hogan is a 27 year old male who was admitted from ER for suicidal ideation , and substance use, he has h/o polysubstance use and qwas admitted when 20 yrs old. he benefited from meds, counselling and was compliant. denies side effects. his moods improved, anger, impulsivity improved, denies cravings. has short and moth exterminator goals. he has good support system. Time spent discussing smoking cessation with patient: 3 to 10 minutes Does patient wish to continue nicotine replacement upon disc: No (patient educated , he will try to quit on his own) - Time Spent with Patient Total time spent providing and/or coordinating discharge services: Less than 30 minutes Quality - Multiple Antipsychotics Patient discharged on 2 or more antipsychotic medications: No Procedures - Procedures Procedures: Medication Management, Crisis Stabilization, Supportive Therapy, Group Therapy, Psychoeducational Therapy (pt was compliant with unit milue) Mental Status Exam - Mental Status Exam Patient orientation: Yes Person, Yes Time, Yes Place Level of alertness: Alert Patient appearance: Appropriate Behavior: calm, cooperative Psychomotor activity: Normal Eye contact: Maintains Eye Contact Mood description: Euthymic/stable Affect description: congruent with mood Speech pattern: Normal rate Speech Volume: Normal Thought process: Intact Thought Content: Yes Intact Judgment: Good Insight: Partial
== END 2017-01-20 11:35 | disposition home or self-care (01) | DRG 751 ==
LOC: 1ANU 21:54 → EMEROO 21:54 → SUATTDRO 01-16 00:26 → 1ANU 01-16 00:32
PROVIDERS: ADMIT Student in an Organized Health Care Education/Training Program; ATTEND Psychiatry & Neurology Psychiatry